=== PATIENT | female | born 1995 | race African-American/Black ===

== ENCOUNTER 2023-07-02 10:36 | Emergency (ER) | payer OTHER ==
[~2023-07-02] VITALS: Ht 154.9 cm; Wt 72.1 kg
[2023-07-02 11:00] VITALS: BP 129/69; PULSE 110; RESP 20; TEMP 98.4; O2SAT 99
[2023-07-02] MEDS ORDERED: NACL 0.9% 1,000 ML IV ONE (11:45)
[2023-07-02 12:36] LABS: BILIRUBIN,URINE NEGATIVE (NEGATIVE); BLOOD, URINE NEGATIVE (NEGATIVE); PROTEIN,URINE NEGATIVE (NEGATIVE); UGLUCOSE 3+ (NEGATIVE)
[2023-07-02 12:37] LABS: APPEARANCE,URINE HAZY (CLEAR); COLOR,URINE YELLOW (YELLOW)
[2023-07-02 12:39] LABS: LEUKOCYTE ESTERASE ,URINE 1+ (NEGATIVE)
[2023-07-02 12:40] LABS: BACTERIA,URINE 1+ /HPF (None Seen); RBC,URINE 0-5 /HPF (0-5); WBC,URINE 16-25 (MOD) /HPF (0-5)
[2023-07-02 12:41] LABS: SQUAMOUS EPITHELIAL CELL,UR 4-10 (MOD) /LPF (0-3 (FEW)); YEAST,URINE Moderate /HPF (None Seen)
[2023-07-02 12:43] LABS: NITRITE, URINE POSITIVE (NEGATIVE)
[2023-07-02 12:44] LABS: ALBUMIN 3.1 g/dL (3.4-5.0); ANION GAP 11.5 (8-16); CALCIUM 8.6 mg/dL (8.5-10.1); CARBON DIOXIDE 24.9 mmol/L (21-32); CREATININE 0.6 mg/dL (0.6-1.3); POTASSIUM 3.4 mmol/L (3.5-5.1); TOTAL BILIRUBIN 0.3 mg/dL (0.0-1.0); TOTAL PROTEIN, SERUM 7.7 g/dL (6.4-8.2)
[2023-07-02 12:52] LABS: BASOPHILS % (AUTO) 0.3 % (0.0-2.0); EOSINOPHILS % (AUTO) 0.2 % (0.0-4.0); HEMATOCRIT 30.9 % (36-48); HEMOGLOBIN 9.9 g/dL (12.0-16.0); LYMPHOCYTES # (AUTO) 1.7 K/uL (2.5-16.5); LYMPHOCYTES % (AUTO) 19.9 % (20.5-51.1); MEAN CORPUSCULAR HEMOGLOBIN 24 pg (27-31); MEAN CORPUSCULAR HGB CONC 32 g/dL (33-37); MEAN CORPUSCULAR VOLUME 74.4 fL (80-94); MONOCYTES # (AUTO) 0.5 K/uL (0.8-1.0); MONOCYTES % (AUTO) 6.1 % (1.7-9.3); NEUTROPHILS # (AUTO) 6.1 K/uL (1.8-7.7); NEUTROPHILS % (AUTO) 73.5 % (42.2-75.2); PLATELET COUNT (AUTO) 366 K/uL (140-450); RED BLOOD CELL COUNT(AUTO) 4.16 MIL/uL (4.20-5.40); RED CELL DISTRIBUTION WIDTH 16.1 % (11.6-13.7); WHITE BLOOD COUNT (AUTO) 8.4 K/uL (4.8-10.8)
[2023-07-02] MEDS ORDERED: CEPH-588 PO (12:58)
[2023-07-02] MEDS ORDERED: ACET-2619 PO (12:59)
[2023-07-02] MEDS ORDERED: PREN1COM6 PO (13:00)
[2023-07-02 13:44] VITALS: O2SAT 98
[2023-07-02 14:22] LABS: FLU A ANTIGEN negative (NEGATIVE); FLU B ANTIGEN NEGATIVE (NEGATIVE)
[2023-07-02 14:30] VITALS: BP 125/83; PULSE 99
[2023-07-02] MEDS ORDERED: PYRI25TA11 PO (14:49)
[2023-07-02 14:58] VITALS: RESP 18; TEMP 98.5; O2SAT 98
== END 2023-07-02 14:58 | disposition home or self-care (01) ==
LOC: MED 10:36
DX: O23.41 Unspecified infection of urinary tract in pregnancy, first trimester (principal); O26.891 Other specified pregnancy related conditions, first trimester; B34.9 Viral infection, unspecified; Z79.899 Other long term (current) drug therapy; Z20.822 Contact with and (suspected) exposure to COVID-19
CPT/HCPCS: 36415; 71045; 80053; 81001; 81025; 83690; 84484; 84702; 85025; 87086; 93005; 96360; 99285; J7030

== ENCOUNTER 2023-07-02 23:01 | Inpatient (IN) | payer OTHER ==
[~2023-07-02] VITALS: Ht 154.9 cm; Wt 72.1 kg
[~2023-07-02 23:01] MED LIST: ACET-2619 PO; CEPH-588 PO; PREN1COM6 PO; PYRI25TA11 PO
[2023-07-02 23:28] VITALS: BP 133/73; PULSE 107; RESP 16; TEMP 96.3; O2SAT 100
[2023-07-03] VITALS (9 sets, daily range): BP systolic 125–146; BP diastolic 60–87; PULSE 78–107; RESP 16–20; TEMP 97.4–98; O2SAT 97–100
[2023-07-03] MEDS ORDERED: METOCLOPRAMIDE 10 MG/2 ML INJ VIAL IVP ONE (00:30)
[2023-07-03] MEDS ORDERED: ACETAMINOPHEN EXTRA STRENGTH 500 MG TAB PO ONE (00:30)
[2023-07-03] MEDS ORDERED: NACL 0.9% 1,000 ML IV SCH (00:30)
[2023-07-03] MEDS ORDERED: cefTRIAXone 1,000 MG VIAL ONE (00:39)
[2023-07-03 01:29] LABS: BASOPHILS # (AUTO) 0.1 K/uL (0.00-0.22); BASOPHILS % (AUTO) 0.3 % (0.0-2.0); HEMATOCRIT 37.4 % (36-48); HEMOGLOBIN 11.8 g/dL (12.0-16.0); LYMPHOCYTES # (AUTO) 1.1 K/uL (2.5-16.5); LYMPHOCYTES % (AUTO) 4.9 % (20.5-51.1); MEAN CORPUSCULAR HEMOGLOBIN 24 pg (27-31); MEAN CORPUSCULAR HGB CONC 32 g/dL (33-37); MEAN CORPUSCULAR VOLUME 74.6 fL (80-94); MONOCYTES % (AUTO) 4.2 % (1.7-9.3); NEUTROPHILS # (AUTO) 20.6 K/uL (1.8-7.7); NEUTROPHILS % (AUTO) 90.6 % (42.2-75.2); PLATELET COUNT (AUTO) 399 K/uL (140-450); RED BLOOD CELL COUNT(AUTO) 5.01 MIL/uL (4.20-5.40); RED CELL DISTRIBUTION WIDTH 16.4 % (11.6-13.7); WHITE BLOOD COUNT (AUTO) 22.7 K/uL (4.8-10.8)
[2023-07-03 01:48] LABS: INR 0.98 (0.8-1.2); PARTIAL THROMBOPLASTIN TIME 28.3 secs (22-35.6); PROTHROMBIN TIME 10.3 secs (10.8-13.4)
[2023-07-03 01:51] LABS: ALANINE AMINOTRANSFERASE 70 U/L (12-78); ALBUMIN 3.7 g/dL (3.4-5.0); ALKALINE PHOSPHATASE 237 U/L (50-136); ANION GAP 14.5 (8-16); ASPARTATE AMINOTRANSFERASE 292 U/L (15-37); CALCIUM 9.3 mg/dL (8.5-10.1); CARBON DIOXIDE 26.4 mmol/L (21-32); CHLORIDE 97 mmol/L (98-107); CREATINE KINASE, TOTAL 49 U/L (26-192); CREATININE 0.6 mg/dL (0.6-1.3); GFR ARICAN-AMERICAN 155 mL/min (>90); GFR NON ARICAN-AMERICAN 128 mL/min (>90); GLUCOSE 291 mg/dL (74-106); SODIUM SERUM 135 mmol/L (136-145); TOTAL BILIRUBIN 0.7 mg/dL (0.0-1.0); TOTAL PROTEIN, SERUM 9.1 g/dL (6.4-8.2); UREA NITROGEN, BLOOD 3 mg/dL (7-18)
[2023-07-03 01:55] LABS: LACTIC ACID 1.7 mmol/L (0.4-2.0)
[2023-07-03] MEDS ORDERED: MORPHINE SULFATE 2 MG/ML SYR IVP ONE (01:55)
[2023-07-03 02:03] LABS: POTASSIUM 2.9 mmol/L (3.5-5.1)
[2023-07-03] MEDS ORDERED: POTASSIUM CHL 20 MEQ/NACL 0.9% 1,000 ML IV ONE (02:15)
[2023-07-03] MEDS ORDERED: POTASSIUM CHLORIDE 10 MEQ TABER PO ONE (02:55)
[2023-07-03] MEDS ORDERED: FAMOTIDINE 20 MG/2 ML VIAL IVP ONE (03:05)
[2023-07-03 03:19] LABS: APPEARANCE,URINE CLEAR (CLEAR); BILIRUBIN,URINE NEGATIVE (NEGATIVE); BLOOD, URINE NEGATIVE (NEGATIVE); COLOR,URINE YELLOW (YELLOW); LEUKOCYTE ESTERASE ,URINE NEGATIVE (NEGATIVE); NITRITE, URINE NEGATIVE (NEGATIVE); PROTEIN,URINE NEGATIVE (NEGATIVE); UGLUCOSE 3+ (NEGATIVE)
[2023-07-03 03:31] LABS: AMPHETAMINE, URINE NEGATIVE ng/ml (NEG <=1000); BARBITURATE, URINE NEGATIVE ng/ml (NEG <=200); BENZODIAZEPINE, URINE NEGATIVE ng/mL (NEG <=200); CANNABINOID, URINE NEGATIVE ng/mL (NEG <=50); COCAINE, URINE NEGATIVE ng/mL (NEG <=300); OPIATE, URINE POSITIVE ng/mL (NEG <=2000); PHENCYCLIDINE SCREEN,URINE NEGATIVE ng/mL (NEG <=25)
[2023-07-03] MEDS ORDERED: KCL 20 MEQ IN 100 mL PREMIX 200 ML IV PRN (03:45)
[2023-07-03] MEDS ORDERED: HYDROcodone/APAP 5/325 MG 1 TAB TAB PO PRN (03:45)
[2023-07-03] MEDS ORDERED: MORPHINE SULFATE 2 MG/ML SYR IVP PRN (03:45)
[2023-07-03] MEDS: NACL 0.9% 1,000 ML IV SCH ×2 (03:45→13:41)
[2023-07-03] MEDS ORDERED: POTASSIUM CHLORIDE 10 MEQ TABER PO PRN (03:45)
[2023-07-03] MEDS ORDERED: MAG SULF 2000 MG/WATER PREMIX 50 ML IV PRN (03:45)
[2023-07-03] MEDS ORDERED: MAGNESIUM OXIDE 400 MG TAB PO PRN (03:45)
[2023-07-03] MEDS ORDERED: ONDANSETRON 4 MG/2 ML VIAL IVP PRN (03:45)
[2023-07-03 03:59] LABS: BACTERIA,URINE 0-2 /HPF (None Seen); MUCUS,URINE 2+ /LPF (None Seen); RBC,URINE 0-5 /HPF (0-5); SQUAMOUS EPITHELIAL CELL,UR 4-10 (MOD) /LPF (0-3 (FEW)); TRICHOMONAS,URINE None Seen /HPF (None Seen); WBC,URINE 0-5 /HPF (0-5); YEAST,URINE Moderate /HPF (None Seen)
[2023-07-03 08:52] LABS: BASOPHILS % (AUTO) 0.2 % (0.0-2.0); EOSINOPHILS % (AUTO) 0.3 % (0.0-4.0); HEMATOCRIT 29.9 % (36-48); HEMOGLOBIN 9.5 g/dL (12.0-16.0); LYMPHOCYTES # (AUTO) 1.4 K/uL (2.5-16.5); LYMPHOCYTES % (AUTO) 12.2 % (20.5-51.1); MEAN CORPUSCULAR HEMOGLOBIN 23 pg (27-31); MEAN CORPUSCULAR HGB CONC 32 g/dL (33-37); MEAN CORPUSCULAR VOLUME 74.1 fL (80-94); MONOCYTES # (AUTO) 0.7 K/uL (0.8-1.0); MONOCYTES % (AUTO) 6.3 % (1.7-9.3); NEUTROPHILS # (AUTO) 9.5 K/uL (1.8-7.7); PLATELET COUNT (AUTO) 343 K/uL (140-450); RED BLOOD CELL COUNT(AUTO) 4.03 MIL/uL (4.20-5.40); RED CELL DISTRIBUTION WIDTH 16.4 % (11.6-13.7); WHITE BLOOD COUNT (AUTO) 11.8 K/uL (4.8-10.8)
[2023-07-03 09:14] LABS: ANION GAP 11.6 (8-16); CALCIUM 7.9 mg/dL (8.5-10.1); CREATININE 0.6 mg/dL (0.6-1.3); POTASSIUM 3.6 mmol/L (3.5-5.1)
[2023-07-03] MEDS ORDERED: PYRIDOXINE HCL 25 MG PO PRN (10:35)
[2023-07-03] MEDS: guaiFENesin 20 MG/ML UDC PO PRN ×2 (10:38→17:55)
[2023-07-03] MEDS: ACETAMINOPHEN 325 MG TAB PO PRN ×2 (10:40→17:56)
[2023-07-03] MEDS ORDERED: ALBUTEROL SULFATE/IPRATROPIU 3 ML SOL IH PRN (11:55)
[2023-07-03] MEDS ORDERED: DEXTROSE 50% 50 ML SYR IVP PRN (19:35)
[2023-07-03] MEDS: guaiFENesin 600 MG TABER PO SCH (20:56)
[2023-07-03] MEDS: BLOOD GLUCOSE MONITORING 1 DEV DEV FS SCH (21:44)
[2023-07-03] MEDS: INSULIN LISPRO SLIDING SCALE 100 UNITS/ML VIAL SUBQ PRN (21:52)
[2023-07-04] VITALS: BP 127/70; PULSE 94; PULSE 95; RESP 18; TEMP 97.4; O2SAT 98
[2023-07-04] MEDS: guaiFENesin 20 MG/ML UDC PO PRN (03:50)
[2023-07-04] MEDS: ACETAMINOPHEN 325 MG TAB PO PRN ×2 (03:54→14:31)
[2023-07-04 04:00] VITALS: BP 126/76; PULSE 102; RESP 18; TEMP 97.6; O2SAT 98
[2023-07-04] MEDS: NACL 0.9% 1,000 ML IV SCH (05:10)
[2023-07-04] MEDS: BLOOD GLUCOSE MONITORING 1 DEV DEV FS SCH ×2 (06:22→11:33)
[2023-07-04] MEDS: INSULIN LISPRO SLIDING SCALE 100 UNITS/ML VIAL SUBQ PRN (06:26)
[2023-07-04 07:05] VITALS: O2SAT 98
[2023-07-04 07:34] LABS: BASOPHILS % (AUTO) 0.2 % (0.0-2.0); EOSINOPHILS # (AUTO) 0.1 K/uL (0-0.4); EOSINOPHILS % (AUTO) 0.6 % (0.0-4.0); HEMOGLOBIN 8.6 g/dL (12.0-16.0); LYMPHOCYTES % (AUTO) 12.6 % (20.5-51.1); MEAN CORPUSCULAR HEMOGLOBIN 24 pg (27-31); MEAN CORPUSCULAR HGB CONC 32 g/dL (33-37); MEAN CORPUSCULAR VOLUME 74.1 fL (80-94); MONOCYTES # (AUTO) 0.8 K/uL (0.8-1.0); MONOCYTES % (AUTO) 5.2 % (1.7-9.3); NEUTROPHILS # (AUTO) 12.7 K/uL (1.8-7.7); NEUTROPHILS % (AUTO) 81.4 % (42.2-75.2); PLATELET COUNT (AUTO) 343 K/uL (140-450); RED BLOOD CELL COUNT(AUTO) 3.64 MIL/uL (4.20-5.40); RED CELL DISTRIBUTION WIDTH 16.3 % (11.6-13.7); WHITE BLOOD COUNT (AUTO) 15.6 K/uL (4.8-10.8)
[2023-07-04 08:00] VITALS: PULSE 90
[2023-07-04 08:01] LABS: ALBUMIN 2.5 g/dL (3.4-5.0); ANION GAP 12.2 (8-16); CREATININE 0.5 mg/dL (0.6-1.3); MAGNESIUM 1.5 mg/dL (1.8-2.4); POTASSIUM 3.2 mmol/L (3.5-5.1); TOTAL BILIRUBIN 0.2 mg/dL (0.0-1.0); TOTAL PROTEIN, SERUM 6.4 g/dL (6.4-8.2)
[2023-07-04] MEDS ORDERED: PRENATAL VIT PO SCH (09:00)
[2023-07-04] MEDS ORDERED: MULTIVIT/MIN/CA/FE/FA 1 TAB PO SCH (09:00)
[2023-07-04] MEDS ORDERED: PYRIDOXINE 50 MG TAB PO SCH (09:00)
[2023-07-04] MEDS ORDERED: IRON PO SCH (09:00)
[2023-07-04] MEDS ORDERED: [UNRECOGNIZED DRUG - OTHER] PO SCH (09:00)
[2023-07-04] MEDS ORDERED: DHA PO SCH (09:00)
[2023-07-04] MEDS: guaiFENesin 600 MG TABER PO SCH (09:24)
[2023-07-04 09:50] VITALS: PULSE 88; RESP 19; O2SAT 98
[2023-07-04] MEDS ORDERED: FAMO-90 PO (12:11)
[2023-07-04] MEDS ORDERED: [UNRECOGNIZED DRUG - CODE] MC (12:11)
[2023-07-04] MEDS ORDERED: HUMSLIDE SUBQ (12:11)
[2023-07-04] MEDS ORDERED: ROB PO (12:11)
[2023-07-04] MEDS ORDERED: INSU-656 SUBQ (12:11)
[2023-07-04] MEDS ORDERED: LANC-486 TP (12:11)
[2023-07-04] MEDS ORDERED: LANC1COM6 MC (12:11)
[2023-07-04 15:37] VITALS: BP 125/75; PULSE 68; RESP 20; TEMP 97.1
== END 2023-07-04 16:33 | disposition home or self-care (01) | DRG 566 ==
LOC: MED 23:01 → MTU 07-03 03:41
PROVIDERS: ADMIT Internal Medicine; ATTEND Internal Medicine
DX: O23.41 Unspecified infection of urinary tract in pregnancy, first trimester (principal); E87.1 Hypo-osmolality and hyponatremia; O24.911 Unspecified diabetes mellitus in pregnancy, first trimester; O16.1 Unspecified maternal hypertension, first trimester; O26.891 Other specified pregnancy related conditions, first trimester; O99.281 Endocrine, nutritional and metabolic diseases complicating pregnancy, first trimester; O99.611 Diseases of the digestive system complicating pregnancy, first trimester; N39.0 Urinary tract infection, site not specified; E87.6 Hypokalemia; K21.9 Gastro-esophageal reflux disease without esophagitis; R74.01 Elevation of levels of liver transaminase levels; Z3A.01 Less than 8 weeks gestation of pregnancy
CPT/HCPCS: 36415; 76700; 76801; 80048; 80053; 80305; 81001; 82550; 82948; 83605; 83690; 83735; 83880; 84484; 84703; 85025; 85379; 85610; 85730; 87040; 87081; 87086; 94640; 96365; 96366; 96367; 96375; 99285; J0696; J2270; J2405; J2765; J3490; J7030; J7060

== ENCOUNTER 2023-07-13 18:16 | Emergency (ER) | payer OTHER ==
[~2023-07-13] VITALS: Ht 154.9 cm; Wt 79.6 kg
[~2023-07-13 18:16] MED LIST changes: +FAMO-90 PO; +HUMSLIDE SUBQ; +INSU-656 SUBQ; +LANC-486 TP; +LANC1COM6 MC; +ROB PO; +[UNRECOGNIZED DRUG - CODE] MC
[2023-07-13 18:24] VITALS: BP 149/91; PULSE 102; RESP 18; TEMP 97.8; O2SAT 100
[2023-07-13 19:57] LABS: BASOPHILS # (AUTO) 0.1 K/uL (0.00-0.22); BASOPHILS % (AUTO) 0.4 % (0.0-2.0); EOSINOPHILS # (AUTO) 0.1 K/uL (0-0.4); EOSINOPHILS % (AUTO) 0.6 % (0.0-4.0); HEMOGLOBIN 9.9 g/dL (12.0-16.0); LYMPHOCYTES # (AUTO) 3.2 K/uL (2.5-16.5); LYMPHOCYTES % (AUTO) 20.4 % (20.5-51.1); MEAN CORPUSCULAR HEMOGLOBIN 23 pg (27-31); MEAN CORPUSCULAR HGB CONC 31 g/dL (33-37); MEAN CORPUSCULAR VOLUME 75.5 fL (80-94); MONOCYTES # (AUTO) 0.7 K/uL (0.8-1.0); MONOCYTES % (AUTO) 4.7 % (1.7-9.3); NEUTROPHILS # (AUTO) 11.7 K/uL (1.8-7.7); NEUTROPHILS % (AUTO) 73.9 % (42.2-75.2); PLATELET COUNT (AUTO) 533 K/uL (140-450); RED BLOOD CELL COUNT(AUTO) 4.24 MIL/uL (4.20-5.40); RED CELL DISTRIBUTION WIDTH 16.1 % (11.6-13.7); WHITE BLOOD COUNT (AUTO) 15.8 K/uL (4.8-10.8)
[2023-07-13 20:09] LABS: BILIRUBIN,URINE NEGATIVE (NEGATIVE); BLOOD, URINE NEGATIVE (NEGATIVE); COLOR,URINE YELLOW (YELLOW); LEUKOCYTE ESTERASE ,URINE TRACE (NEGATIVE); NITRITE, URINE NEGATIVE (NEGATIVE); PROTEIN,URINE NEGATIVE (NEGATIVE); UGLUCOSE NEGATIVE (NEGATIVE); UROBILINOGEN,URINE 0.2 EU/dL (0.2 - 1)
[2023-07-13 20:22] LABS: APPEARANCE,URINE HAZY (CLEAR)
[2023-07-13 20:30] LABS: BACTERIA,URINE 1+ /HPF (None Seen); RBC,URINE NONE SEEN /HPF (0-5); SQUAMOUS EPITHELIAL CELL,UR 4-10 (MOD) /LPF (0-3 (FEW))
[2023-07-13] MEDS ORDERED: ACETAMINOPHEN 325 MG TAB PO ONE (21:05)
== END 2023-07-13 21:25 | disposition home or self-care (01) ==
LOC: MED 18:16
DX: O20.0 Threatened abortion (principal); E11.9 Type 2 diabetes mellitus without complications; I10 Essential (primary) hypertension; Z3A.01 Less than 8 weeks gestation of pregnancy; Z79.4 Long term (current) use of insulin; Z79.899 Other long term (current) drug therapy
CPT/HCPCS: 36415; 76801; 81001; 82948; 84702; 85025; 86900; 86901; 87086; 99284

== ENCOUNTER 2023-09-27 17:37 | Emergency (ER) | payer OTHER ==
[~2023-09-27] VITALS: Ht 154.9 cm; Wt 83.2 kg
[2023-09-27 17:49] VITALS: BP 139/85; PULSE 99; RESP 16; TEMP 97; O2SAT 100
[2023-09-27 19:36] LABS: BASOPHILS # (AUTO) 0.1 K/uL (0.00-0.22); BASOPHILS % (AUTO) 0.6 % (0.0-2.0); EOSINOPHILS # (AUTO) 0.1 K/uL (0-0.4); EOSINOPHILS % (AUTO) 0.7 % (0.0-4.0); HEMATOCRIT 34.5 % (36-48); HEMOGLOBIN 11.5 g/dL (12.0-16.0); LYMPHOCYTES # (AUTO) 3.4 K/uL (2.5-16.5); LYMPHOCYTES % (AUTO) 23.2 % (20.5-51.1); MEAN CORPUSCULAR HEMOGLOBIN 27 pg (27-31); MEAN CORPUSCULAR HGB CONC 34 g/dL (33-37); MEAN CORPUSCULAR VOLUME 80.6 fL (80-94); MONOCYTES # (AUTO) 0.8 K/uL (0.8-1.0); MONOCYTES % (AUTO) 5.4 % (1.7-9.3); NEUTROPHILS # (AUTO) 10.4 K/uL (1.8-7.7); NEUTROPHILS % (AUTO) 70.1 % (42.2-75.2); PLATELET COUNT (AUTO) 340 K/uL (140-450); RED BLOOD CELL COUNT(AUTO) 4.28 MIL/uL (4.20-5.40); RED CELL DISTRIBUTION WIDTH 17.5 % (11.6-13.7); WHITE BLOOD COUNT (AUTO) 14.8 K/uL (4.8-10.8)
[2023-09-27] MEDS ORDERED: ALUMINUM HYD/MAG/SIMETHICONE 30 ML UDC PO ONE (19:40)
[2023-09-27] MEDS ORDERED: ONDANSETRON 4 MG ODT PO ONE (19:45)
[2023-09-27 19:47] LABS: ANION GAP 10.7 (8-16); CALCIUM 9.2 mg/dL (8.5-10.1); CARBON DIOXIDE 27.2 mmol/L (21-32); CREATININE 0.5 mg/dL (0.6-1.3); POTASSIUM 3.9 mmol/L (3.5-5.1)
[2023-09-27 19:49] LABS: INR 0.95 (0.8-1.2); PARTIAL THROMBOPLASTIN TIME 28.8 secs (22-35.6)
[2023-09-27 19:55] LABS: ALANINE AMINOTRANSFERASE 9 U/L (12-78); ALBUMIN 2.8 g/dL (3.4-5.0); ALKALINE PHOSPHATASE 69 U/L (50-136); ASPARTATE AMINOTRANSFERASE 8 U/L (15-37); LIPASE 15 U/L (16-77); TOTAL BILIRUBIN 0.1 mg/dL (0.0-1.0); TOTAL PROTEIN, SERUM 8.9 g/dL (6.4-8.2)
[2023-09-27 20:01] LABS: APPEARANCE,URINE CLEAR (CLEAR); BILIRUBIN,URINE NEGATIVE (NEGATIVE); BLOOD, URINE NEGATIVE (NEGATIVE); COLOR,URINE YELLOW (YELLOW); LEUKOCYTE ESTERASE ,URINE NEGATIVE (NEGATIVE); NITRITE, URINE NEGATIVE (NEGATIVE); PROTEIN,URINE NEGATIVE (NEGATIVE); UGLUCOSE NEGATIVE (NEGATIVE); UROBILINOGEN,URINE 0.2 EU/dL (0.2 - 1)
[2023-09-27] MEDS ORDERED: ACETAMINOPHEN 325 MG TAB PO ONE (20:30)
[2023-09-27] MEDS ORDERED: FAMO-90 PO (20:55)
== END 2023-09-27 21:16 | disposition home or self-care (01) ==
LOC: MED 17:37
DX: O26.892 Other specified pregnancy related conditions, second trimester (principal); R10.13 Epigastric pain; O10.912 Unspecified pre-existing hypertension complicating pregnancy, second trimester; O24.912 Unspecified diabetes mellitus in pregnancy, second trimester; Z3A.17 17 weeks gestation of pregnancy; Z79.899 Other long term (current) drug therapy; Z79.4 Long term (current) use of insulin; Z79.2 Long term (current) use of antibiotics
CPT/HCPCS: 36415; 76705; 76815; 80048; 80076; 81003; 81025; 83690; 83880; 84484; 85025; 85610; 85730; 93005; 99284; Q0092; Q0162

== ENCOUNTER 2024-01-11 10:42 | Emergency (ER) | payer OTHER ==
[~2024-01-11] VITALS: Ht 154.9 cm; Wt 87.1 kg
[2024-01-11 11:06] VITALS: BP 133/84; PULSE 119; RESP 20; TEMP 98.3; O2SAT 100
[2024-01-11] MEDS: ACETAMINOPHEN 325 MG TAB PO ONE (12:09)
[2024-01-11] MEDS: NACL 0.9% 1,000 ML IV ONE (12:10)
[2024-01-11] MEDS ORDERED: TAM75 PO (12:50)
[2024-01-11] MEDS ORDERED: AMOX500C25 PO (12:50)
[2024-01-11 12:59] VITALS: BP 130/82; PULSE 99; RESP 20; TEMP 98.3; O2SAT 100
[2024-01-11 13:02] LABS: APPEARANCE,URINE CLEAR (CLEAR); BILIRUBIN,URINE NEGATIVE (NEGATIVE); BLOOD, URINE NEGATIVE (NEGATIVE); COLOR,URINE YELLOW (YELLOW); LEUKOCYTE ESTERASE ,URINE 1+ (NEGATIVE); NITRITE, URINE NEGATIVE (NEGATIVE); PH,URINE 6.5 (5.0-9.0); PROTEIN,URINE NEGATIVE (NEGATIVE); UGLUCOSE NEGATIVE (NEGATIVE)
[2024-01-11 13:05] LABS: BACTERIA,URINE OCCASSIONAL /HPF (None Seen); RBC,URINE 0-5 /HPF (0-5); SQUAMOUS EPITHELIAL CELL,UR 0-3 (FEW) /LPF (0-3 (FEW)); WBC,URINE 0-5 /HPF (0-5)
[2024-01-11 13:46] LABS: FLU A ANTIGEN negative (NEGATIVE); FLU B ANTIGEN negative (NEGATIVE)
== END 2024-01-11 12:58 | disposition home or self-care (01) ==
LOC: MED 10:42
DX: J32.9 Chronic sinusitis, unspecified (principal); Z20.822 Contact with and (suspected) exposure to COVID-19; E11.9 Type 2 diabetes mellitus without complications; I10 Essential (primary) hypertension; Z79.4 Long term (current) use of insulin; Z79.899 Other long term (current) drug therapy
CPT/HCPCS: 81001; 81025; 82948; 87086; 99283

== ENCOUNTER 2024-06-04 20:07 | Emergency (ER) | payer OTHER ==
[~2024-06-04] VITALS: Ht 154.9 cm; Wt 79.4 kg
[~2024-06-04 20:07] MED LIST changes: +AMOX500C25 PO; +TAM75 PO
[2024-06-04 20:11] VITALS: BP 136/99; PULSE 104; RESP 18; TEMP 97; O2SAT 100
[2024-06-04] MEDS ORDERED: KETOROLAC 30 MG/ML VIAL ONE (20:30)
[2024-06-04] MEDS ORDERED: CLIN300C2 PO (20:33)
[2024-06-04] MEDS: KETOROLAC 30 MG/ML VIAL IM ONE (20:33)
[2024-06-04 20:36] VITALS: BP 136/99; PULSE 104; RESP 18; TEMP 97; O2SAT 100
== END 2024-06-04 20:36 | disposition home or self-care (01) ==
LOC: MED 20:07
DX: S91.312A Laceration without foreign body, left foot, initial encounter (principal); E11.9 Type 2 diabetes mellitus without complications; I10 Essential (primary) hypertension; Z79.899 Other long term (current) drug therapy; Z79.4 Long term (current) use of insulin; X58.XXXA Exposure to other specified factors, initial encounter; Y93.89 Activity, other specified; Y92.89 Other specified places as the place of occurrence of the external cause; Y99.8 Other external cause status
CPT/HCPCS: 81025; 96372; 99283; J1885

== ENCOUNTER 2024-06-23 15:45 | Emergency (ER) | payer OTHER ==
[~2024-06-23] VITALS: Ht 154.9 cm; Wt 83.0 kg
[~2024-06-23 15:45] MED LIST changes: +CLIN300C2 PO
[2024-06-23 15:57] VITALS: BP 153/102; PULSE 99; RESP 16; TEMP 97.9; O2SAT 100
[2024-06-23] MEDS ORDERED: IBUP-2213 PO (16:26)
[2024-06-23] MEDS ORDERED: ACET500T99 PO (16:26)
== END 2024-06-23 16:48 | disposition home or self-care (01) ==
LOC: MED 15:45
DX: S90.212A Contusion of left great toe with damage to nail, initial encounter (principal); E11.9 Type 2 diabetes mellitus without complications; I10 Essential (primary) hypertension; Z79.899 Other long term (current) drug therapy; Z79.4 Long term (current) use of insulin; W20.8XXA Other cause of strike by thrown, projected or falling object, initial encounter; Y93.89 Activity, other specified; Y92.89 Other specified places as the place of occurrence of the external cause; Y99.8 Other external cause status
CPT/HCPCS: 73660; 99283